=== PATIENT | female | born 1970 | race African-American/Black ===

== ENCOUNTER 2021-01-13 22:31 | Emergency (ER) | payer OTHER ==
[~2021-01-13] VITALS: Ht 157.5 cm; Wt 84.8 kg
[~2021-01-13 22:31] MED LIST: ATIVAN0.5 M1 PO; VASOTEC10 MG PO
[2021-01-14 03:24] VITALS: BP 157/101
--- NOTE | 2021-01-15 08:48 | EKG ---
[place] [address] [facility] [place] [employer] [place] [address] ELECTROCARDIOGRAM REPORT Name: ARCADIO SILVER Room #: [facility]P [id number] Admission: 01/13/21 Attend Phys: Discharge: 01/14/21 Date of : 72 Report #: [id number] [facility] ED Test Date: 2021-01-13 Test Time: 22:37:01 Pat Name: ARCADIO SILVER Department: Room: Gender: F Graphics Intern: FLAKO : 1970 Requested By: Oliva Ricardo Order Number: [id number] MD: Vel San Measurements Intervals [place] Rate: 82 P: 57 WA: 149 QRS: 59 QRSD: 90 T: 40 QT: 398 QTc: 465 Interpretive Statements Sinus rhythm Probable left atrial enlargement Compared to ECG 01/10/2021 04:10:57 No significant changes Electronically Signed On 01-15-2021 8:47:54 CDT by Vel San [email or web address] <ELECTRONICALLY SIGNED> By: Vel San MD, [facility] 01/15/21 [id number] Vel San MD, FACC /EPI
--- NOTE | 2021-01-15 08:48 | EKG ---
[place] [address] [facility] [place] [address] ELECTROCARDIOGRAM REPORT Name: ARCADIO SILVER Room #: DEP [facility]#: [id number] Admission: 01/13/21 Attend Phys: Discharge: 01/14/21 Date of : 72 Report #: [id number] [facility] ED Test Date: 2021-01-14 Test Time: 02:02:54 Pat Name: ARCADIO SILVER Department: Room: Gender: F Career Development Manager: FLAKO : 1970 Requested By: Oliva Ricardo Order Number: [id number] MD: Vel San Measurements Intervals [place] Rate: 59 P: 58 RI: 187 QRS: 69 QRSD: 94 T: 59 QT: 467 QTc: 463 Interpretive Statements Sinus rhythm Baseline wander in lead(s) V3 Compared to ECG 01/13/2021 22:37:01 No significant changes Electronically Signed On 01-15-2021 8:48:00 CDT by Vel San [email or web address] <ELECTRONICALLY SIGNED> By: Vel San MD, [facility] 01/15/21 0848 020 0202 Vel San MD, FACC /EPI
== END 2021-01-14 03:25 | disposition home or self-care (01) ==
LOC: ER 22:31
DX: I10 Essential (primary) hypertension (principal); R07.89 Other chest pain; G56.03 Carpal tunnel syndrome, bilateral upper limbs; F17.210 Nicotine dependence, cigarettes, uncomplicated; Z98.890 Other specified postprocedural states; Z79.899 Other long term (current) drug therapy